=== PATIENT | female | born 1990 | race Caucasian/White ===

== ENCOUNTER → 2016-08-08 08:09 | Outpatient (CLI) | payer BC | END | disposition home or self-care (01) | LOC: D.US 08:00 | DX: R10.11 Right upper quadrant pain (principal) ==

== ENCOUNTER → 2016-08-29 08:00 | Outpatient (CLI) | payer BC | END | disposition home or self-care (01) | LOC: D.NM 08:00 | DX: R10.11 Right upper quadrant pain (principal) ==

== ENCOUNTER → 2016-12-16 09:42 | Outpatient (CLI) | payer BC | END | disposition home or self-care (01) | LOC: D.CT 09:42 | DX: R10.31 Right lower quadrant pain (principal) ==

== ENCOUNTER → 2017-08-14 10:59 | Outpatient (CLI) | payer OTHER | END | disposition home or self-care (01) | LOC: D.US 10:59 | DX: N61.0 Mastitis without abscess (principal) ==

== ENCOUNTER 2018-07-23 08:11 | Day surgery (SDC) | payer OTHER ==
[~2018-07-23] VITALS: Ht 175.3 cm; Wt 131.1 kg
[~2018-07-23 08:11] MED LIST: ADIPEX-P37.5 M1 PO; HYDROCHLOROTHIA50 MG PO; LOW OGESTREL; PROZAC10 MG PO
[2018-07-23 08:32] LABS: HEMATOCRIT 40.8 % (36.0-48.0); HEMOGLOBIN 13.8 g/dL (12-16); MCH 28.6 pg (26.0-34.0); MCHC 33.8 g/dL (31.0-37.0); MCV 84.5 fL (80.0-100.0); MEAN PLATELET VOLUME 11.1 fL (7.4-10.4); RBC 4.83 10x6/uL (4.00-5.40); RDW 13.4 % (11.5-14.5); WBC 7.6 10x3/uL (4.8-10.8)
[2018-07-23 08:39] LABS: ANION GAP 12.4 mmol/L (8-16); CARBON DIOXIDE 28.9 mmol/L (21.0-32.0); POTASSIUM - SERUM 3.3 mmol/L (3.5-5.1)
[2018-07-23 08:57] VITALS: BP 136/82; Ht 175.3 cm; Wt 131.1 kg
[2018-07-23 09:10] LABS: HCG URINE NEGATIVE (NEGATIVE)
--- NOTE | 2018-07-23 12:15 | NUR ---
REC'D FROM RR. FAMILY AT BEDSIDE. GRAPE JUICE BROUGHT TO PT.
--- NOTE | 2018-07-23 12:45 | NUR ---
SITTING WITH HOB ELEVATED. DENIES NEEDS. FAMILY AT BEDSIDE.
--- NOTE | 2018-07-23 13:15 | NUR ---
TOLERATED JUICE. DOES NOT WANT ICE CREAM, POPSICLE OR JUICE. MOTHER AT BEDSIDE.
--- NOTE | 2018-07-23 13:45 | NUR ---
WRITTEN AND VERBAL DC INST. GIVEN TO PT ALONG WITH RX. VERBALIZED UNDERSTANDING.
--- NOTE | 2018-07-23 13:55 | NUR ---
IV DC'D WITH CATHETER INTACT. WAITING FOR RIDE TO GET DRESSED.
--- NOTE | 2018-07-23 14:10 | NUR ---
DC'D HOME WITH FAMILY VIA PRIVATE VEHICLE. TAKEN TO VEHICLE VIA WC. STABLE AT TIME OF DC.
--- NOTE | 2018-07-23 22:21 | HP ---
PATIENT: JESSIE HUTTON MEDICAL RECORD: [id number] ACCOUNT: [id number] LOCATION:[facility] : 86 ADMISSION DATE: 07/23/18 PCP: KEVIN BARRETO DO HISTORY AND PHYSICAL EXAMINATION HISTORY OF PRESENT ILLNESS: Jessie is 28-year-old. She has been having significant problems with her tonsils for years. She is having recurrent pharyngitis as well as obstructive symptoms. She is being admitted for tonsillectomy. PAST MEDICAL HISTORY: Reflux and seasonal allergies. MEDICATIONS: Include hydrochlorothiazide, fluoxetine, phentermine, oral contraceptive. ALLERGIES: MORPHINE, CODEINE AND VICODIN. PHYSICAL EXAMINATION: GENERAL: Healthy-appearing, developmentally normal. FACE: Normal, symmetric, no lesions. EYES: Sclerae and conjunctivae are normal. EARS: Canals and TMs are normal. NOSE: No mass, polyps or drainage. ORAL CAVITY AND OROPHARYNX: A 4+ cryptic tonsils, normal palate. NECK: No masses, no adenopathy. CHEST: Clear. CARDIOVASCULAR: Regular rate and rhythm, no murmur. EXTREMITIES: Normal. IMPRESSION: Chronic tonsillitis and obstructive tonsillar hypertrophy. PLAN: Tonsillectomy. TRANSINT:[id number] Voice Confirmation ID: [id number] DOCUMENT ID: [id number] JOANIE COTTON MD at 2221 CC: [id number] DICTATION DATE: 07/22/18920 [employer] OPERATOR: 07/22/18 0938 [facility] 07/23/[address] [address]
--- NOTE | 2018-07-23 22:21 | OP ---
PATIENT NAME: ZUHAIR HUTTON MEDICAL RECORD: [id number] :86 [facility]: SURGEON: JOANIE COTTON MD DATE OF OPERATION: 07/23/2018 PREOPERATIVE DIAGNOSES: Chronic pharyngitis and tonsillar hypertrophy. POSTOPERATIVE DIAGNOSES: Chronic pharyngitis and tonsillar hypertrophy. PROCEDURE: Tonsillectomy. SURGEON: Joanie Cotton MD ANESTHESIA: General orotracheal. BLOOD LOSS: 20 cc. SPECIMENS: Right and left tonsil. COMPLICATIONS: None. DISPOSITION: Recovery stable. PROCEDURE NOTE: She was brought to the operating room and placed in supine position, sedated and intubated by anesthesia. The table was turned 90 degrees. Head drapes were applied and she was positioned for tonsillectomy. Using a headlight, a Thea-Bashir mouth gag was carefully inserted and elevated on a towel on her chest. The palate was examined and palpated as normal. A red rubber catheter was placed through the right side of the nose and pharynx was grasped with tonsil clamp to retract the soft palate. Using a mirror, the nasopharynx was examined. The choanae and eustachian orifices were normal bilaterally. There was really no significant adenoid tissue. The red rubber catheter was let down and removed. The right tonsil was grasped at the superior pole with a straight Allis clamp. It was a massive 4+ caseous tonsil. A spatula tip cautery on a setting of 9 was used to dissect out the tonsil along its capsule, preserving the anterior and posterior tonsillar pillar. The left tonsil was removed in the same fashion. Then, both sides of the nose were irrigated with saline. The pharynx was suctioned. Tonsillar fossae were agitated. Suction cautery on a setting of 20 was used to control minimal oozing. With the field clean and dry, the Thea-Bashir mouth gag was let down and removed. She was awakened, extubated, and transported to recovery in good condition. No complications. TRANSINT:[id number] Voice Confirmation ID: [id number] DOCUMENT ID: [id number] JOANIE COTTON MD at 2226 CC: [id number] DICTATION DATE: 07/23/18 1143 WINDOWS APPLICATION ADMINISTRATOR: 07/23/18 1326 DEP SDC 07/23/18 [facility] [address] [place] [address]
== END 2018-07-23 14:10 | disposition home or self-care (01) ==
LOC: D.OPS 08:11 → D.PAN 09:45 → D.OPS 10:15 → D.PAN 10:15 → D.OPS 10:30
PROVIDERS: Anesthesiology; Otolaryngology
DX: J35.01 Chronic tonsillitis (principal)